=== PATIENT | male | born 1960 ===

== ENCOUNTER → 2017-09-06 | Day surgery (SDC) | payer BC ==
[2017-09-02 09:42] VITALS: BMI 26.4
[~2017-09-06] MED LIST: LACTATED RINGERS 1,000 ML IV SCH; LIDOCAINE 1% 20 ML VIAL (10MG/ML) FOR IV START INTRADERMA PRN; PROPOFOL 10 MG/ML 20 ML VIAL IV ONE
[2017-09-06 09:04] VITALS: TEMP 98.8
--- NOTE | 2017-09-06 10:33 | P.PCN ---
Date of Procedure: 09/06/17 Procedure(s) Performed: Procedure: Colonoscopy and biopsy. Preoperative diagnosis: Screening for neoplasia. Postoperative diagnosis: 1. Prominent fold in the sigmoid biopsied and diminutive polyp in the distal sigmoid biopsied but no large polyps or cancer. 2. Diverticulosis with no evidence of acute diverticulitis or strictures. Preparation: HalfLytely prep. Sedation: Was provided by anesthesia. Brief clinical history: The patient is a 57-year-old male who is referred for this evaluation for screening for neoplasia age being his risk factor. There is no family history of colon cancer. He has no abdominal complaints, bleeding or anemia. This would be his first colonoscopy. Procedure: With the patient on his left lateral decubitus position and after informed consent and adequate sedation, the perianal area was inspected and it did not show any fissures or fistulas. There were no masses felt on digital rectal examination. The Olympus CFQ 160L video colonoscope was then inserted in the rectum in the usual fashion and advanced to the cecum. There were multiple diverticular orifices seen scattered mostly on the left side with some around the hepatic flexure and on the right side with no evidence of acute diverticulitis or strictures. In the sigmoid around 50 cm from the anal verge there was a polypoid elevation on one of the folds which I biopsied to rule out early polyp. Also, in the distal sigmoid there was a diminutive polyp, probably representing hyperplastic tissue, which I biopsied but there were no large polyps or cancer. I retroflexed the endoscope in the rectum before the endoscope was withdrawn. The patient tolerated the procedure well. Plan: The patient was reassured. Discussed dietary measures. Will await pathology results. I anticipate repeating this exam in 5 years. He will follow up with you as planned.
[2017-09-06 10:37] VITALS: BP 102/67; PULSE 63; RESP 15
== END ==
LOC: ORWHC2ENDO 08:38
DX: Z12.11 Encounter for screening for malignant neoplasm of colon (principal); K63.5 Polyp of colon; K51.40 Inflammatory polyps of colon without complications; K57.30 Diverticulosis of large intestine without perforation or abscess without bleeding; F17.210 Nicotine dependence, cigarettes, uncomplicated; Z88.2 Allergy status to sulfonamides
CPT/HCPCS: 88305; 45380; J2704